=== PATIENT | female | born 2000 | race Caucasian/White ===

== ENCOUNTER 2024-12-06 17:22 | Inpatient (IN) | payer OTHER ==
[~2024-12-06] VITALS: Ht 167.6 cm; Wt 120.9 kg
[2024-12-06] MEDS: SODIUM CHLORIDE 0.9% 1,000 ML IVB ONE (17:30)
--- NOTE | 2024-12-06 17:45 | ED.PDOC ---
General HPI Comments This is a 24-year-old female who comes in with chief complaint of right-sided flank pain. The patient states that the symptoms started approximately 1 hour ago. The patient states that she has never had these symptoms in the past. She went to the restroom and noticed a significant amount of hematuria. The patient then started vomiting and so she called 911. When the paramedics arrived, the patient was given Zofran 4 mg ODT. The patient states that the pain was an 8/10. There was no fever or chills. Upon arrival, the patient is still having some retching. Chief Complaint: Flank Pain Time Seen by MD: 17:25 Reviewed notes: Nurses Notes, In Flight Technician Notes, Medications, Allergies (No allergies to medications) Allergies: Coded Allergies: NO KNOWN ALLERGIES (Unverified , 12/06/24) Information Source: Patient, Emergency Med Personnel Mode of Arrival: EMS Severity: Moderate Inability to void: None Timing: Hours Duration: Since onset Prehospital treatment: None Onset: Spontaneous Symptoms: Hematuria History of: None Location: (R) Flank Modifying factors: None associated signs and symptoms: Abdominal Pain, Nausea, Vomiting, Flank Pain (Right-sided flank pain), Hematuria Past Medical History PAST MEDICAL HISTORY: Denies Surgical History: Tonsillectomy 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: No Pertinent 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 Family History Family History: Family hx of DM, Family hx of HTN Social History Smoker: Cigarettes Alcohol: Occasionally Drugs: Denies Drug Use Lives In: Home Constitutional: denies: chills, diaphoresis, fatigue, fever, malaise, sweats, weakness, others EENTM: denies: blurred vision, double vision, ear bleeding, ear discharge, ear drainage, ear pain, ear ringing, eye pain, eye redness, hearing loss, mouth pain, mouth swelling, nasal discharge, nose bleeding, nose congestion, nose pain, photophobia, tearing, throat pain, throat swelling, voice changes, others Respiratory: denies: cough, hemoptysis, orthopnea, SOB at rest, shortness of breath, SOB with excertion, stridor, wheezing, others Cardiovascular: denies: chest pain, dizzy spells, diaphoresis, Dyspnea on exertion, edema, irregular heart beat, left arm pain, lightheadedness, palpitations, PND, syncope, others Gastrointestinal: reports: abdominal pain, nausea, vomiting; denies: abdomen distended, blood streaked bowels, constipated, diarrhea, dysphagia, difficulty swallowing, hematemesis, melena, poor appetite, poor fluid intake, rectal bleeding, rectal pain, others Genitourinary: reports: flank pain (Right-sided flank pain), hematuria; denies: abnormal vagina bleeding, burning, dyspareunia, dysuria, frequency, i ncontinence, pain, , vagina discharge, urgency, others Neurological: denies: dizziness, fainting, headache, left sided numbness, left sided weakness, numbness, paresthesia, pre-existing deficit, right sided numbness, right sided weakness, seizure, speech problems, tingling, tremors, weakness, others Musculoskeletal: denies: back pain, gout, joint pain, joint swelling, muscle pain, muscle stiffness, neck pain, others Integumetry: denies: bruises, change in color, change in hair/nails, dryness, laceration, lesions, lumps, rash, wounds, others Hematologic/Lymphatic: denies: anemia, blood clots, easy bleeding, easy bruising, swollen glands, others Endocrine: denies: excessive hunger, excessive sweating, excessive thirst, excessive urination, flushing, intolerance to cold, intolerance to heat, unexplained weight gain, unexplained weight loss, others Psychiatric: denies: anxiety, bipolar disorder, depression, hopeless, panic disorder, schizophrenia, sleepless, suicidal, others Physical Exam General Appearance: Moderate Distress, Obese HEENT: Normal ENT Inspection, Pharynx Normal, TMs Normal Neck: Full Range of Motion, Non-Tender, Normal, Normal Inspection Respiratory: Chest Non-Tender, Lungs Clear, No Accessory Muscle Use, No Respiratory Distress, Normal Breath Sounds Cardiovascular: No Edema, No JVD, No Murmur, No Gallop, Normal Peripheral Pulses, Regular Rate/Rhythm Breast Exam: Deferred Gastrointestinal: No Organomegaly, Non Tender, No Pulsatile Mass, Normal Bowel Sounds, Soft Genitalia: Deferred Pelvic: Deferred Rectal: Deferred Extremities: No calf tenderness, Normal capillary refill, No pedal edema Musculoskeletal : Location: Right Extremity Location: Back Apperance: Tenderness: Moderate Neurologic: Alert, rubber chemist II-XII nml as Tested, No Motor Deficits, Normal Affect, Normal Mood, No Sensory Deficits Cerebellar Function: Normal Reflexes: Normal Skin: Dry, Normal Color, Warm Lymphatic: No Adenopathy Was a procedure done? Was a procedure done?: No Differential Diagnosis Kidney stone (Female): Musculoskeletal pain, Pancreatitis, Pyelonephritis, Renal failure, Strain, Urolithiasis X-Ray, Labs, Meds, VS Vital Signs Date Time Temp Pulse Resp B/P (MAP) Pulse Ox O2 Delivery O2 Flow Rate FiO2 12/06/24 19:08 98.7 91 16 113/76 (88) 99 98.7 12/06/24 19:08 91 16 99 Room Air 12/06/24 17:30 98.6 86 16 133/79 (97) 98 98.6 Lab Test 12/06/24 18:07 12/06/24 17:46 Range/Units Urine Color Light-brown Yellow Urine Clarity Ex.turbid Clear Urine pH 5.5 5.0-9.0 Urine Specific [place] 1.029 1.001-1.035 Urine Protein 1+ H Negative Urine Ketones Trace Negative Urine Blood 3+ H Negative /uL Urine Nitrite Negative Negative Urine Bilirubin Negative Negative Urine Urobilinogen Normal Negative mg/dL Urine Leukocyte Esterase Trace Negative /uL Urine RBC 4736 0 - 4 /hpf Urine Microscopic WBC 41 H 0-5 /HPF Urine Squamous Epithelial Cells Mod <5 /hpf Urine Bacteria None seen None Seen /hpf Urine Mucus Few None Seen Urine Yeast (Budding) Few None Seen /hpf Urine Glucose Normal Normal mg/dL Urine Test Negative Negative White Blood Count 10.4 4.4-10.8 10^3/uL Red Blood Count 4.88 4.0-5.20 10^6/uL Hemoglobin 13.8 12.2-16.2 g/dL Hematocrit 41.2 36.0-46.0 % Mean Corpuscular Volume 84.4 80.0-100.0 fL Mean Corpuscular Hemoglobin 28.4 28.0-32.0 pg Mean Corpuscular Hemoglobin Concent 33.6 32.0-36.0 g/dL Red Cell Distribution Width 13.8 11.8-14.3 % Platelet Count 295 140-450 10^3/uL Mean Platelet Volume 8.9 6.9-10.8 fL Neutrophils (%) (Auto) 75.5 37.0-80.0 % Lymphocytes (%) (Auto) 17.2 10.0-50.0 % Monocytes (%) (Auto) 5.8 0.0-12.0 % Eosinophils (%) (Auto) 0.7 0.0-7.0 % Basophils (%) (Auto) 0.8 0.0-2.0 % Neutrophils # (Auto) 7.8 1.6-8.6 10 ^3/uL Lymphocytes # (Auto) 1.8 0.4-5.4 10 ^3/uL Monocytes # (Auto) 0.6 0-1.3 10 ^3/uL Eosinophils # (Auto) 0.1 0-0.8 10 ^3/uL Basophils # (Auto) 0.1 0-0.2 10 ^3/uL Nucleated Red Blood Cells 0.1 % Sodium Level 143 136-145 mmol/L Potassium Level 3.9 3.5-5.1 mmol/L Chloride Level 107 98-107 mmol/L Carbon Dioxide Level 26 20-31 mmol/L Anion Gap 10 5-15 Blood Urea Nitrogen 10 9-23 mg/dL Creatinine 0.86 0.550-1.02 mg/dL Glomerular Filtration Rate Calc 96 >90 mL/min BUN/Creatinine Ratio 11.6 10.0-20.0 Serum Glucose 100 74-106 mg/dL Calcium Level 10.1 8.7-10.4 mg/dL IV Hep-Lock was established. The patient was given a 1 L bolus of normal saline The patient was given Toradol 30 mg IV push The patient is being given morphine 4 mg IV push for the pain and Zofran 4 mg IV push for the nausea and Cat scan of the abdomen and pelvis shows: IMPRESSION: 1. Obstructing 3 x 4 mm calculus at the right UPJ. Additional punctate 2 mm calculus at the right UVJ. There is mild right hydronephrosis. 2. Punctate nonobstructing left renal calculus. At this time, the patient is being admitted to the hospitalist Images Reviewed?: Images reviewed and evaluated by me Time of 1ST Reevaluation: 17:45 Reevaluation 1ST: Unchanged Patient Education/Counseling: Diagnosis, Treatment, Prognosis Family Education/Counseling: No Family Present Departure 1 Departure Time of Disposition: 19:29 Impression: Primary Impression: Intractable abdominal pain Additional Impression: Ureterolithiasis Disposition: 09 ADMITTED INPATIENT Admit to: Med Surg Condition: Fair Critical Care Note Critical Care Time?: No Stability Stability form required: Yes Unstable for transfer: ED Physician Assesment (Clinical assesment) Heart Score Heart Score: Heart Score Response (Comments) Value History N/A 0 EKG N/A 0 Age N/A 0 Risk Factors N/A 0 Troponin N/A 0 Total 0 SHIRA CADE MD Dec 06, 2024 17:45
[2024-12-06 17:59] LABS: Basophils # (auto) 0.1 10 ^3/uL (0-0.2); Basophils % (auto) 0.8 % (0.0-2.0); Eosinophils # (auto) 0.1 10 ^3/uL (0-0.8); Eosinophils % (auto) 0.7 % (0.0-7.0); Hematocrit 41.2 % (36.0-46.0); Hemoglobin 13.8 g/dL (12.2-16.2); Lymphocytes # (auto) 1.8 10 ^3/uL (0.4-5.4); Lymphocytes % (auto) 17.2 % (10.0-50.0); Mean Corpuscular Hemoglobin 28.4 pg (28.0-32.0); Mean Corpuscular Hgb Conc. 33.6 g/dL (32.0-36.0); Mean Corpuscular Volume 84.4 fL (80.0-100.0); Monocytes # (auto) 0.6 10 ^3/uL (0-1.3); Monocytes % (auto) 5.8 % (0.0-12.0); Neutrophils # (auto) 7.8 10 ^3/uL (1.6-8.6); Neutrophils % (auto) 75.5 % (37.0-80.0); Nucleated Red Blood Cells % 0.1 %; Platelet Count (auto) 295 10^3/uL (140-450); Red Blood Cells 4.88 10^6/uL (4.0-5.20); Red Cell Distribution Width 13.8 % (11.8-14.3); White Blood Cell 10.4 10^3/uL (4.4-10.8)
[2024-12-06 18:08] LABS: Potassium 3.9 mmol/L (3.5-5.1); Sodium 143 mmol/L (136-145)
[2024-12-06 18:09] LABS: Urine Bacteria None Seen /hpf (None Seen)
[2024-12-06 18:09] LABS: Calcium 10.1 mg/dL (8.7-10.4); Chloride 107 mmol/L (98-107)
[2024-12-06 18:14] LABS: BUN/Creatinine Ratio 11.6 (10.0-20.0); Blood Urea Nitrogen 10 mg/dL (9-23); Glucose 100 mg/dL (74-106)
[2024-12-06 18:19] LABS: Urine Blood 3+ /uL (Negative); Urine Budding Yeast FEW /hpf (None Seen); Urine Clarity Ex.Turbid (Clear); Urine Color Light-Brown (Yellow); Urine Mucus FEW (None Seen); Urine Protein, UAD 1+ (Negative); Urine Specific Gravity 1.029 (1.001-1.035); Urine Squamous Epithelial Cell MOD /hpf (<5); Urine Urobilinogen Normal (Negative); Urine WBC 41 /HPF (0-5); Urine pH 5.5 (5.0-9.0)
[2024-12-06 18:39] LABS: Anion Gap 10 (5-15); Carbon Dioxide 26 mmol/L (20-31)
--- NOTE | 2024-12-06 18:54 | DVH ---
Exam: CT CT AB PEL WO CON-NO ORAL OR IV History: Right flank pain Comparison Study: None Technique: Multidetector spiral CT of the abdomen was performed from lung bases to pubic symphysis. Imaging was performed without IV contrast. Axial, coronal and sagittal multiplanar reformats were ob tained from the axial data set by the technologist. Radiation Dose : 1. Abdomen/Pelvis: CTDIvol 26.6 mGy, DLP 1620 mGy*cm. Findings: Evaluation of solid organs is limited due to lack of intravenous contrast use. Lung Bases: No acute or significant lung base finding. Normal heart size. No pleural or pericardial effusion. Liver: The liver is normal in size. No focal lesions. Gallbladder and Biliary Tree: Unremarkable Spleen: Unremarkable Pancreas: The pancreas is grossly normal in appearance. Adrenal Glands: Unremarkable Kidneys: Obstructing 3 x 3 x 4 mm calculus at the right ureteropelvic junction. Additional punctate 2 mm calculus at the right ureterovesical junction (series 2, image 89). Mild right hydronephrosis. Th e right ureter is not dilated. Punctate nonobstructing left superior renal pole calculus. Bladder: Urinary bladder is nondistended. Bowel: The stomach is grossly normal in appearance. Small bowel and colon are normal in caliber and d istribution. Normal appendix is visualized in the right lower quadrant without findings of appendici tis. Ascites: Absent Lymphadenopathy: No mesenteric, retroperitoneal or periportal lymphadenopathy. Abdominal Wall and Mesentery: Unremarkable. Vasculature: The visualized abdominal aorta is normal in size and caliber. Evaluation of abdominal a nd pelvic vessels is limited due to lack of intravenous contrast. Pelvic Organs: Unremarkable Musculoskeletal: No aggressive focal bony lesions, acute fractures or dislocation. IMPRESSION: 1. Obstructing 3 x 4 mm calculus at the right UPJ. Additional punctate 2 mm calculus at the right UV J. There is mild right hydronephrosis. 2. Punctate nonobstructing left renal calculus. Radiation optimization: All CT scans at this facility use at least one of these dose optimization romi hniques: automated exposure control mA and/or kV adjustment per patient size (includes targeted exam s where dose is matched to clinical indication) or iterative reconstruction.
[2024-12-06] MEDS ORDERED: ONDANSETRON HCL 4 MG/2 ML VIAL IV PRN (19:30)
[2024-12-06] MEDS ORDERED: HYDROcodone-ACET 5/325MG TAB PO PRN (19:30)
[2024-12-06] MEDS ORDERED: ACETAMINOPHEN 325 MG TAB PO PRN (19:30)
[2024-12-06] MEDS ORDERED: KETOROLAC TROMETH 30 MG/ML 1ML VIAL IV PRN (19:30)
[2024-12-06] MEDS: ONDANSETRON HCL 4 MG/2 ML VIAL IV ONE (19:47)
[2024-12-06] MEDS: KETOROLAC TROMETH 30 MG/ML 1ML VIAL IV ONE (19:47)
[2024-12-06] MEDS: cefTRIAXone 1GM/50ML D5W 50 ML IV ONE (19:47)
[2024-12-06] MEDS: MORPHINE SULFATE 4 MG/ML SYR/VIAL IV ONE (19:51)
[2024-12-06 21:41] VITALS: BP 118/83; PULSE 67; RESP 19; TEMP 98.9; O2SAT 96
[2024-12-06 21:46] VITALS: RESP 18
--- NOTE | 2024-12-06 22:18 | DVHHP2 ---
History of Present Illness Reason for Visit: Right flank pain History of Present Illness 24-year-old female presents for evaluation of right flank pain. Patient endorses a one day history of right-sided flank pain with associated hematuria. Reports occasional nausea. Fever or chills. No other acute complaints. Past Medical History Denies Past Surgical History Tonsillectomy Family History Noncontributory Smoke: <1 pack per day ALCOHOL: occassional Drugs: None Lives: with Family Review of Systems Review of Systems Review of systems are currently negative otherwise addressed in HPI. Allergies: Coded Allergies: NO KNOWN ALLERGIES (Unverified , 12/06/24) Medications Current Medications Medications Dose Ordered Sig/Venus Route Start Time Stop Time Status Last Admin Dose Admin Ceftriaxone Sodium 50 ml @ 100 mls/hr DAILY@09 IV 12/07/24 09:00 Ketorolac Tromethamine 15 mg Q6HPRN PRN IV 12/06/24 19:30 12/11/24 19:29 Acetaminophen/ Hydrocodone Bitart 1 tab Q4HP PRN PO 12/06/24 19:30 Ondansetron HCl 4 mg Q4HP PRN IV 12/06/24 19:30 Acetaminophen 650 mg Q6HP PRN PO 12/06/24 19:30 Exam Vital Signs Vital Signs Date Time Temp Pulse Resp B/P (MAP) Pulse Ox O2 Delivery O2 Flow Rate FiO2 12/06/24 21:41 98.9 67 19 118/83 (95) 96 98.9 12/06/24 19:08 Room Air Exam Gen: 24-year-old female in mild distress, morbidly obese Skin: Warm, dry, normal color and texture, no rash. HEENT: Normocephalic atraumatic, mucous membranes moist and pink. Neck: Cervical and supraclavicular nodes normal without enlargement, trachea is midline, thyroid gland is normal without masses. Pulmonary: Clear to auscultation and percussion bilaterally. Cardiac: Regular rate and rhythm. No murmur Abdomen: Soft, right CVA tenderness, nondistended, bowel sounds present all 4 quadrants, no guarding, no rigidity, no organomegaly. Extremities: No cyanosis, clubbing, no edema Neuro: Cranial nerves II through XII grossly intact, normal affect and speech, no focal motor deficits. Labs/Xrays ORDERING PHYSICIAN: SHIRA CADE MD PROCEDURE(s): ABPL - CT AB PEL WO CON-NO ORAL OR IV REASON: Right flank pain ORDER NUMBER(s): [id number], ACCESSION NUMBER(s): [id number] Exam: CT CT AB PEL WO CON-NO ORAL OR IV History: Right flank pain Comparison Study: None Technique: Multidetector spiral CT of the abdomen was performed from lung bases to pubic symphysis. Imaging was performed without IV contrast. Axial, coronal and sagittal multiplanar reformats were obtained from the axial data set by the technologist. Radiation Dose : 1. Abdomen/Pelvis: CTDIvol 26.6 mGy, DLP 1620 mGy*cm. Findings: Evaluation of solid organs is limited due to lack of intravenous contrast use. Lung Bases: No acute or significant lung base finding. Normal heart size. No pl eural or pericardial effusion. Liver: The liver is normal in size. No focal lesions. Gallbladder and Biliary Tree: Unremarkable Spleen: Unremarkable Pancreas: The pancreas is grossly normal in appearance. Adrenal Glands: Unremarkable Kidneys: Obstructing 3 x 3 x 4 mm calculus at the right ureteropelvic junction. Additional punctate 2 mm calculus at the right ureterovesical junction (series 2, image 89). Mild right hydronephrosis. The right ureter is not dilated. Punctate nonobstructing left superior renal pole calculus. Bladder: Urinary bladder is nondistended. Bowel: The stomach is grossly normal in appearance. Small bowel and colon are normal in caliber and distribution. Normal appendix is visualized in the right lower quadrant without findings of appendicitis. Ascites: Absent Lymphadenopathy: No mesenteric, retroperitoneal or periportal lymphadenopathy. Abdominal Wall and Mesentery: Unremarkable. Vasculature: The visualized abdominal aorta is normal in size and caliber. Evaluation of abdominal and pelvic vessels is limited due to lack of intravenous contrast. Pelvic Organs: Unremarkable Musculoskeletal: No aggressive focal bony lesions, acute fractures or dislocation. IMPRESSION: 1. Obstructing 3 x 4 mm calculus at the right UPJ. Additional punctate 2 mm calculus at the right UVJ. There is mild right hydronephrosis. 2. Punctate nonobstructing left renal calculus. Radiation optimization: All CT scans at this facility use at least one of these dose optimization techniques: automated exposure control mA and/or kV adjustment per patient size (includes targeted exams where dose is matched to clinical indication) or iterative reconstruction. Labs Test 12/06/24 18:07 12/06/24 17:46 Range/Units Urine Color Light-brown Yellow Urine Clarity Ex.turbid Clear Urine pH 5.5 5.0-9.0 Urine Specific [place] 1.029 1.001-1.035 Urine Protein 1+ H Negative Urine Ketones Trace Negative Urine Blood 3+ H Negative /uL Urine Nitrite Negative Negative Urine Bilirubin Negative Negative Urine Urobilinogen Normal Negative mg/dL Urine Leukocyte Esterase Trace Negative /uL Urine RBC 4736 0 - 4 /hpf Urine Microscopic WBC 41 H 0-5 /HPF Urine Squamous Epithelial Cells Mod <5 /hpf Urine Bacteria None seen None Seen /hpf Urine Mucus Few None Seen Urine Yeast (Budding) Few None Seen /hpf Urine Glucose Normal Normal mg/dL Urine Test Negative Negative White Blood Count 10.4 4.4-10.8 10^3/uL Red Blood Count 4.88 4.0-5.20 10^6/uL Hemoglobin 13.8 12.2-16.2 g/dL Hematocrit 41.2 36.0-46.0 % Mean Corpuscular Volume 84.4 80.0-100.0 fL Mean Corpuscular Hemoglobin 28.4 28.0-32.0 pg Mean Corpuscular Hemoglobin Concent 33.6 32.0-36.0 g/dL Red Cell Distribution Width 13.8 11.8-14.3 % Platelet Count 295 140-450 10^3/uL Mean Platelet Volume 8.9 6.9-10.8 fL Neutrophils (%) (Auto) 75.5 37.0-80.0 % Lymphocytes (%) (Auto) 17.2 10.0-50.0 % Monocytes (%) (Auto) 5.8 0.0-12.0 % Eosinophils (%) (Auto) 0.7 0.0-7.0 % Basophils (%) (Auto) 0.8 0.0-2.0 % Neutrophils # (Auto) 7.8 1.6-8.6 10 ^3/uL Lymphocytes # (Auto) 1.8 0.4-5.4 10 ^3/uL Monocytes # (Auto) 0.6 0-1.3 10 ^3/uL Eosinophils # (Auto) 0.1 0-0.8 10 ^3/uL Basophils # (Auto) 0.1 0-0.2 10 ^3/uL Nucleated Red Blood Cells 0.1 % Sodium Level 143 136-145 mmol/L Potassium Level 3.9 3.5-5.1 mmol/L Chloride Level 107 98-107 mmol/L Carbon Dioxide Level 26 20-31 mmol/L Anion Gap 10 5-15 Blood Urea Nitrogen 10 9-23 mg/dL Creatinine 0.86 0.550-1.02 mg/dL Glomerular Filtration Rate Calc 96 >90 mL/min BUN/Creatinine Ratio 11.6 10.0-20.0 Serum Glucose 100 74-106 mg/dL Calcium Level 10.1 8.7-10.4 mg/dL Assessment/Plan Assessment/Plan Assessment Renal calculus Hematuria Right hydronephrosis Morbid obesity Plan Admit the patient to [facility] to the hospitalist Urology consult Pain management Rocephin Continue treatment per orders Plan discussed with: Patient My Orders Orders - MIR CAPUTO Procedure Category Date Status Time Ceftriaxone 1gm/50ml PHA 12/07/24 In Process D5w (Rocephin) 09:00 * Urology Consult CONS 12/06/24 Transmitted 19:24 Ketorolac Injection PHA 12/06/24 In Process (Toradol Injection) 19:30 Admit ADMIT 12/06/24 Transmitted 19:24 Hydrocodone-Acet PHA 12/06/24 In Process 5/325mg Tab ([place] 19:30 Ondansetron Hcl PHA 12/06/24 In Process (Zofran) 19:30 Condition: Stable ISAC 12/06/24 In Process 19:24 Acetaminophen Tablet PHA 12/06/24 In Process (Tylenol Tablet) 19:30 Bedrest With Bathroom ISAC 12/06/24 In Process Privileg 19:24 Date of Service: Dec 06, 2024 Billing Provider: MIR CAPUTO Common Visit Codes: [id number] INP/OBS CARE (MOD) MIR CAPUTO Dec 06, 2024 22:18
[2024-12-07] VITALS (8 sets, daily range): BP systolic 99–122; BP diastolic 59–78; PULSE 58–97; RESP 18–20; TEMP 96.9–98.5; O2SAT 96–99
[2024-12-07] MEDS ORDERED: ONDANSETRON HCL 4 MG/2 ML VIAL IV PRN (00:15)
[2024-12-07] MEDS: ONDANSETRON HCL 4 MG/2 ML VIAL IV PRN (00:29)
[2024-12-07] MEDS: KETOROLAC TROMETH 30 MG/ML 1ML VIAL IV PRN (00:29)
[2024-12-07] MEDS ORDERED: TAMSULOSIN HYDROCHLORIDE 0.4 MG CAP PO SCH (08:30)
[2024-12-07] MEDS: TAMSULOSIN HYDROCHLORIDE 0.4 MG CAP PO ONE ×2 (09:47→18:35)
[2024-12-07 10:18] LABS: Basophils # (auto) 0.1 10 ^3/uL (0-0.2); Basophils % (auto) 0.9 % (0.0-2.0); Eosinophils # (auto) 0.1 10 ^3/uL (0-0.8); Eosinophils % (auto) 0.8 % (0.0-7.0); Hematocrit 41.1 % (36.0-46.0); Hemoglobin 13.8 g/dL (12.2-16.2); Lymphocytes # (auto) 1.8 10 ^3/uL (0.4-5.4); Lymphocytes % (auto) 17.6 % (10.0-50.0); Mean Corpuscular Hemoglobin 28.4 pg (28.0-32.0); Mean Corpuscular Hgb Conc. 33.5 g/dL (32.0-36.0); Mean Corpuscular Volume 84.8 fL (80.0-100.0); Monocytes # (auto) 0.9 10 ^3/uL (0-1.3); Monocytes % (auto) 9.1 % (0.0-12.0); Neutrophils # (auto) 7.2 10 ^3/uL (1.6-8.6); Neutrophils % (auto) 71.6 % (37.0-80.0); Nucleated Red Blood Cells % 0.1 %; Platelet Count (auto) 276 10^3/uL (140-450); Red Blood Cells 4.84 10^6/uL (4.0-5.20); Red Cell Distribution Width 13.7 % (11.8-14.3)
[2024-12-07 10:28] LABS: Potassium 3.8 mmol/L (3.5-5.1); Sodium 144 mmol/L (136-145)
[2024-12-07 10:29] LABS: Anion Gap 9 (5-15); Calcium 9.5 mg/dL (8.7-10.4); Carbon Dioxide 27 mmol/L (20-31)
[2024-12-07 10:30] LABS: Chloride 108 mmol/L (98-107)
[2024-12-07 10:35] LABS: BUN/Creatinine Ratio 10.6 (10.0-20.0); Blood Urea Nitrogen 9 mg/dL (9-23); Glucose 92 mg/dL (74-106)
[2024-12-07] MEDS: cefTRIAXone 1GM/50ML D5W 50 ML IV SCH (10:36)
[2024-12-07] MEDS: SODIUM CHLORIDE 0.9% 1,000 ML IV ONE (12:11)
--- NOTE | 2024-12-07 15:06 | DVHPNRES ---
Progress Note Date Seen: Dec 07, 2024 Resident Creating Document: FABRICIO ARDON RESIDENT Has the PT tested + for MRSA If YES, has PT been informed?: No Medical Necessity Reason Pt with a Central, PICC or Fol: No Subjective Review of Systems 24-year-old female presents for evaluation of right flank pain. Patient endorses a one day history of right-sided flank pain with associated hematuria. Reports occasional nausea. Fever or chills. No other acute complaints. Past Surgical History Tonsillectomy Smoke: <1 pack per day ALCOHOL: occassional Drugs: None Lives: with Family Ct scan showed: Obstructing 3 x 4 mm calculus at the right UPJ. Additional punctate 2 mm calculus at the right UVJ. There is mild right hydronephrosis. IV fluids given, tamsulosin ordered, pain management, strain urine, we will monitor symptoms Objective vital signs Vital Sign Date Time Temp Pulse Resp B/P (MAP) Pulse Ox O2 Delivery O2 Flow Rate FiO2 12/07/24 13:00 98.1 70 18 107/59 (75) 98 98.1 12/07/24 08:00 Room Air* 0 21 Total Intake and Output 12/06/24 12/06/24 12/07/24 15:00 23:00 07:00 Intake Total 450 ml Balance 450 ml medications Current Medications Medications Dose Ordered Sig/Venus Route Start Time Stop Time Status Last Admin Dose Admin Ceftriaxone Sodium 50 ml @ 100 mls/hr DAILY@09 IV 12/07/24 09:00 12/07/24 10:36 100 MLS/HR Acetaminophen/ Hydrocodone Bitart 1 tab Q4HP PRN PO 12/06/24 19:30 Acetaminophen 650 mg Q6HP PRN PO 12/06/24 19:30 Ketorolac Tromethamine 15 mg Q6HPRN PRN IV 12/07/24 00:15 12/11/24 19:29 12/07/24 09:47 15 MG Ondansetron HCl 4 mg Q4HP PRN IV 12/07/24 00:15 12/07/24 09:58 4 MG Tamsulosin HCl 0.4 mg QPM PO 12/08/24 18:00 Examination Gen: 24-year-old female in mild distress, morbidly obese Skin: Warm, dry, normal color and texture, no rash. HEENT: Normocephalic atraumatic, mucous membranes moist and pink. Neck: Cervical and supraclavicular nodes normal without enlargement, trachea is midline, thyroid gland is normal without masses. Pulmonary: Clear to auscultation and percussion bilaterally. Cardiac: Regular rate and rhythm. No murmur Abdomen: Soft, right CVA tenderness, nondistended, bowel sounds present all 4 quadrants, no guarding, no rigidity, no organomegaly. Extremities: No cyanosis, clubbing, no edema Neuro: Cranial nerves II through XII grossly intact, normal affect and speech, no focal motor deficits. laboratory and microbiology Laboratory Tests 12/07/24 09:47 Test 12/07/24 09:47 Range/Units Serum Glucose 92 74-106 mg/dL Problem List/Assessment/Plan Problem List/Assessment/Plan #Renal calculus #Obstructing 3 x 4 mm calculus at the right UPJ. Additional punctate 2 mm calculus at the right UVJ #Hematuria #Right hydronephrosis #Morbid obesity Plan Regular diet IV given Ketorolac and norco for pain Ceftriaxone IV Case discussed with Dr Azul Plan discussed with: Patient, Other (rn) My Orders My Orders Orders - FABRICIO ARDON Procedure Category Date Status Time Strain All Urine For ISAC 12/07/24 In Process Stones 08:22 Tamsulosin PHA 12/08/24 In Process Hydrochloride (Flomax) 18:00 Date of Service: Dec 07, 2024 Billing Provider: STEPH AZUL MD Common Visit Codes: [id number] INP/OBS CARE(HIGH) FABRICIO ARDON Dec 07, 2024 15:06 STEPH AZUL MD Dec 08, 2024 21:31
[2024-12-07] MEDS: TAMSULOSIN HYDROCHLORIDE 0.4 MG CAP PO SCH (18:24)
[2024-12-08] VITALS (8 sets, daily range): BP systolic 108–127; BP diastolic 48–85; PULSE 67–86; RESP 17–20; TEMP 95.2–98.4; O2SAT 95–99
[2024-12-08 07:22] LABS: Basophils # (auto) 0.1 10 ^3/uL (0-0.2); Basophils % (auto) 1.1 % (0.0-2.0); Eosinophils # (auto) 0.1 10 ^3/uL (0-0.8); Eosinophils % (auto) 1.5 % (0.0-7.0); Hematocrit 40.8 % (36.0-46.0); Hemoglobin 13.7 g/dL (12.2-16.2); Lymphocytes # (auto) 1.3 10 ^3/uL (0.4-5.4); Lymphocytes % (auto) 15.2 % (10.0-50.0); Mean Corpuscular Hemoglobin 28.6 pg (28.0-32.0); Mean Corpuscular Hgb Conc. 33.7 g/dL (32.0-36.0); Monocytes # (auto) 0.7 10 ^3/uL (0-1.3); Monocytes % (auto) 7.9 % (0.0-12.0); Neutrophils # (auto) 6.4 10 ^3/uL (1.6-8.6); Neutrophils % (auto) 74.3 % (37.0-80.0); Nucleated Red Blood Cells % 0.1 %; Platelet Count (auto) 248 10^3/uL (140-450); White Blood Cell 8.7 10^3/uL (4.4-10.8)
[2024-12-08 07:29] LABS: Anion Gap 12 (5-15); Carbon Dioxide 24 mmol/L (20-31); Chloride 104 mmol/L (98-107); Potassium 3.5 mmol/L (3.5-5.1); Sodium 140 mmol/L (136-145)
[2024-12-08 07:31] LABS: Calcium 8.8 mg/dL (8.7-10.4)
[2024-12-08 07:35] LABS: Blood Urea Nitrogen 12 mg/dL (9-23); Glucose 88 mg/dL (74-106)
--- NOTE | 2024-12-08 10:48 | DVHPNRES ---
Progress Note Date Seen: Dec 08, 2024 Resident Creating Document: FABRICIO ARDON RESIDENT Has the PT tested + for MRSA If YES, has PT been informed?: No Medical Necessity Reason Pt with a Central, PICC or Fol: No Subjective Review of Systems 24-year-old female presents for evaluation of right flank pain. Patient endorses a one day history of right-sided flank pain with associated hematuria. Reports occasional nausea. Fever or chills. No other acute complaints. Past Surgical History Tonsillectomy Smoke: <1 pack per day ALCOHOL: occassional Drugs: None Lives: with Family 12/07/2024: Ct scan showed: Obstructing 3 x 4 mm calculus at the right UPJ. Additional punctate 2 mm calculus at the right UVJ. There is mild right hydronephrosis. IV fluids given, tamsulosin ordered, pain management, strain urine, we will monitor symptoms 12/08/2024: pain is migrating to the suprapubic area, we will continue IV fluids, tamsulosin and straining urine Objective vital signs Vital Sign Date Time Temp Pulse Resp B/P (MAP) Pulse Ox O2 Delivery O2 Flow Rate FiO2 12/08/24 09:00 97.9 67 18 115/48 (70) 97 97.9 12/08/24 08:00 Room Air* 0 21 Total Intake and Output 12/07/24 12/07/24 12/08/24 15:00 23:00 07:00 Intake Total 236 ml 300 ml Balance 236 ml 300 ml medications Current Medications Medications Dose Ordered Sig/Venus Route Start Time Stop Time Status Last Admin Dose Admin Ceftriaxone Sodium 50 ml @ 100 mls/hr DAILY@09 IV 12/07/24 09:00 12/08/24 08:10 100 MLS/HR Acetaminophen/ Hydrocodone Bitart 1 tab Q4HP PRN PO 12/06/24 19:30 Acetaminophen 650 mg Q6HP PRN PO 12/06/24 19:30 Ketorolac Tromethamine 15 mg Q6HPRN PRN IV 12/07/24 00:15 12/11/24 19:29 12/07/24 22:26 15 MG Ondansetron HCl 4 mg Q4HP PRN IV 12/07/24 00:15 12/07/24 22:26 4 MG Tamsulosin HCl 0.4 mg QPM PO 12/08/24 10:30 Examination Gen: 24-year-old female in mild distress, morbidly obese Skin: Warm, dry, normal color and texture, no rash. HEENT: Normocephalic atraumatic, mucous membranes moist and pink. Neck: Cervical and supraclavicular nodes normal without enlargement, trachea is midline, thyroid gland is normal without masses. Pulmonary: Clear to auscultation and percussion bilaterally. Cardiac: Regular rate and rhythm. No murmur Abdomen: Soft, right CVA tenderness, nondistended, bowel sounds present all 4 quadrants, no guarding, no rigidity, no organomegaly. Extremities: No cyanosis, clubbing, no edema Neuro: Cranial nerves II through XII grossly intact, normal affect and speech, no focal motor deficits. laboratory and microbiology Laboratory Tests 12/08/24 04:37 Test 12/08/24 04:37 Range/Units Serum Glucose 88 74-106 mg/dL Problem List/Assessment/Plan Problem List/Assessment/Plan #Renal calculus #Obstructing 3 x 4 mm calculus at the right UPJ. Additional punctate 2 mm calculus at the right UVJ #Hematuria #Right hydronephrosis #Morbid obesity Plan Regular diet IV given Ketorolac and norco for pain Ceftriaxone IV 12/07/2024: Ct scan showed: Obstructing 3 x 4 mm calculus at the right UPJ. Additional punctate 2 mm calculus at the right UVJ. There is mild right hydronephrosis. IV fluids given, tamsulosin ordered, pain management, strain urine, we will monitor symptoms 12/08/2024: pain is migrating to the suprapubic area, we will continue IV fluids, tamsulosin and straining urine Case discussed with Dr Parker Plan discussed with: Patient, Other (rn) My Orders My Orders Orders - FABRICIO ARDON Procedure Category Date Status Time Tamsulosin PHA 12/08/24 In Process Hydrochloride (Flomax) 10:30 Sodium Chloride 0.9% PHA 12/08/24 In Process 10:30 FABRICIO ARDON RESIDENT Dec 08, 2024 10:48
[2024-12-08] MEDS: TAMSULOSIN HYDROCHLORIDE 0.4 MG CAP PO SCH (14:06)
[2024-12-08] MEDS: SODIUM CHLORIDE 0.9% 1,000 ML IV ONE (18:43)
[2024-12-09 01:00] VITALS: BP 111/68; PULSE 78; RESP 19; TEMP 98.2; O2SAT 97
[2024-12-09 05:00] VITALS: BP 104/69; PULSE 70; RESP 19; TEMP 97.7; O2SAT 96
--- NOTE | 2024-12-09 06:56 | DVHINCON2 ---
Date of service: Dec 09, 2024 History of Present Illness HPI 24-year-old female with past history of morbid obesity presented with flank pain and hematuria. She is found to have kidney stone and hydronephrosis Home Meds No Active Prescriptions or Reported Meds Past Medical History Patient Family History: Diabetes mellitus G8 MOTHER G8 FATHER G8 SISTER H&P Exam Vital Signs Vital Signs Date Time Temp Pulse Resp B/P (MAP) Pulse Ox O2 Delivery O2 Flow Rate FiO2 12/09/24 05:00 97.7 70 19 104/69 (81) 96 97.7 12/08/24 20:00 Room Air* 0 21 Labs/Xrays Labs Test 12/08/24 04:37 12/06/24 18:07 Range/Units White Blood Count 8.7 4.4-10.8 10^3/uL Red Blood Count 4.80 4.0-5.20 10^6/uL Hemoglobin 13.7 12.2-16.2 g/dL Hematocrit 40.8 36.0-46.0 % Mean Corpuscular Volume 85.0 80.0-100.0 fL Mean Corpuscular Hemoglobin 28.6 28.0-32.0 pg Mean Corpuscular Hemoglobin Concent 33.7 32.0-36.0 g/dL Red Cell Distribution Width 14.0 11.8-14.3 % Platelet Count 248 140-450 10^3/uL Mean Platelet Volume 10.1 6.9-10.8 fL Neutrophils (%) (Auto) 74.3 37.0-80.0 % Lymphocytes (%) (Auto) 15.2 10.0-50.0 % Monocytes (%) (Auto) 7.9 0.0-12.0 % Eosinophils (%) (Auto) 1.5 0.0-7.0 % Basophils (%) (Auto) 1.1 0.0-2.0 % Neutrophils # (Auto) 6.4 1.6-8.6 10 ^3/uL Lymphocytes # (Auto) 1.3 0.4-5.4 10 ^3/uL Monocytes # (Auto) 0.7 0-1.3 10 ^3/uL Eosinophils # (Auto) 0.1 0-0.8 10 ^3/uL Basophils # (Auto) 0.1 0-0.2 10 ^3/uL Nucleated Red Blood Cells 0.1 % Sodium Level 140 136-145 mmol/L Potassium Level 3.5 3.5-5.1 mmol/L Chloride Level 104 98-107 mmol/L Carbon Dioxide Level 24 20-31 mmol/L Anion Gap 12 5-15 Blood Urea Nitrogen 12 9-23 mg/dL Creatinine 1.09 H 0.550-1.02 mg/dL Glomerular Filtration Rate Calc 72 >90 mL/min BUN/Creatinine Ratio 11.0 10.0-20.0 Serum Glucose 88 74-106 mg/dL Calcium Level 8.8 8.7-10.4 mg/dL Urine Color Light-brown Yellow Urine Clarity Ex.turbid Clear Urine pH 5.5 5.0-9.0 Urine Specific [place] 1.029 1.001-1.035 Urine Protein 1+ H Negative Urine Ketones Trace Negative Urine Blood 3+ H Negative /uL Urine Nitrite Negative Negative Urine Bilirubin Negative Negative Urine Urobilinogen Normal Negative mg/dL Urine Leukocyte Esterase Trace Negative /uL Urine RBC 4736 0 - 4 /hpf Urine Microscopic WBC 41 H 0-5 /HPF Urine Squamous Epithelial Cells Mod <5 /hpf Urine Bacteria None seen None Seen /hpf Urine Mucus Few None Seen Urine Yeast (Budding) Few None Seen /hpf Urine Glucose Normal Normal mg/dL Urine Test Negative Negative Assessment/Plan Plan 24-year-old female with past history of morbid obesity presented with flank pain and hematuria. She is found to have kidney stone and hydronephrosis. Patient herself fast for our consultation No JVD. Mucosa pink and wet. No carotid bruit. Lungs are clear to auscultation. Cardiac: Regular, no thrill/gallop. Abdomen is soft. Extremities do not reveal edema. Past medical history includes morbid obesity and status post tonsillectomy Labs reviewed Abdomen and pelvis CT scan revealed: IMPRESSION: 1. Obstructing 3 x 4 mm ca lculus at the right UPJ. Additional punctate 2 mm calculus at the right UVJ. There is mild right hydronephrosis. 2. Punctate nonobstructing left renal calculus. Assessment: Kidney stone Hematuria Hydronephrosis Suggestion for management: Management of pain as per primary team Antibiotics as per primary team/Urology Consider repeat imaging /CT scan Urology evaluation Patient evaluation and chart review and examination and documentation took more than 50 minutes. More than half of the above was for direct patient care. Plan discussed with: Patient, Other (nurse) LAUREEN DAWKINS MD Dec 09, 2024 06:56
[2024-12-09 08:14] LABS: Basophils # (auto) 0.1 10 ^3/uL (0-0.2); Basophils % (auto) 0.9 % (0.0-2.0); Eosinophils # (auto) 0.2 10 ^3/uL (0-0.8); Eosinophils % (auto) 3.1 % (0.0-7.0); Hematocrit 39.7 % (36.0-46.0); Hemoglobin 13.5 g/dL (12.2-16.2); Lymphocytes # (auto) 1.9 10 ^3/uL (0.4-5.4); Lymphocytes % (auto) 26.5 % (10.0-50.0); Mean Corpuscular Hemoglobin 28.3 pg (28.0-32.0); Mean Corpuscular Hgb Conc. 33.9 g/dL (32.0-36.0); Mean Corpuscular Volume 83.6 fL (80.0-100.0); Monocytes # (auto) 0.6 10 ^3/uL (0-1.3); Neutrophils # (auto) 4.4 10 ^3/uL (1.6-8.6); Neutrophils % (auto) 61.5 % (37.0-80.0); Platelet Count (auto) 280 10^3/uL (140-450); Red Blood Cells 4.75 10^6/uL (4.0-5.20); Red Cell Distribution Width 13.9 % (11.8-14.3); White Blood Cell 7.1 10^3/uL (4.4-10.8)
[2024-12-09 08:26] LABS: Sodium 144 mmol/L (136-145)
[2024-12-09 08:27] LABS: Anion Gap 10 (5-15); Calcium 9.6 mg/dL (8.7-10.4); Carbon Dioxide 27 mmol/L (20-31)
[2024-12-09 08:32] LABS: BUN/Creatinine Ratio 15.6 (10.0-20.0); Blood Urea Nitrogen 12 mg/dL (9-23); Glucose 94 mg/dL (74-106)
[2024-12-09 08:34] LABS: Chloride 107 mmol/L (98-107)
[2024-12-09 08:47] VITALS: BP 112/63; PULSE 83; RESP 18; TEMP 98; O2SAT 98
--- NOTE | 2024-12-09 09:14 | DVHINCON2 ---
Date of service: Dec 09, 2024 Referring Physician Hospitalist Reason for Consultation Urolithiasis History of Present Illness 24-year-old female admitted for right-sided flank pain. There was no fever or chills. Currently, pain is well controlled. Chief Complaint: Flank Pain Reviewed notes: Nurses Notes, Polysomnographic Technologist Notes, Medications, Allergies (No allergies to medications) Allergies: Coded Allergies: NO KNOWN ALLERGIES (Unverified , 12/06/24) Information Source: Patient, Emergency Med Personnel Mode of Arrival: EMS Severity: Moderate Inability to void: None Timing: Hours Duration: Since onset Prehospital treatment: None Onset: Spontaneous Symptoms: Hematuria History of: None Location: (R) Flank Modifying factors: None associated signs and symptoms: Abdominal Pain, Nausea, Vomiting, Flank Pain (Right-sided flank pain), Hematuria Past Medical History Denies Past Surgical History Surgical History: Tonsillectomy MANAGER PARK History: No Pertinent MANAGER PARK History Family History: Diabetes mellitus G8 MOTHER G8 FATHER G8 SISTER Social History smoker Allergies: Coded Allergies: NO KNOWN ALLERGIES (Unverified , 12/06/24) Home Meds No Active Prescriptions or Reported Meds Current Medications Current Medications Medications (Trade) Dose Ordered Sig/Venus Route PRN Reason Start Time Stop Time Status Last Admin Tamsulosin HCl (Flomax) 0.4 mg QPM PO 12/08/24 18:00 12/08/24 10:20 DC 12/07/24 18:24 Tamsulosin HCl (Flomax) 0.4 mg QPM PO 12/08/24 10:30 12/08/24 14:06 Review of Systems Constitutional: denies: chills, diaphoresis, fatigue, fever, malaise, sweats, weakness, others EENTM: denies: blurred vision, double vision, ear bleeding, ear discharge, ear drainage, ear pain, ear ringing, eye pain, eye redness, hearing loss, mouth pain, mouth swelling, nasal discharge, nose bleeding, nose congestion, nose pain, photophobia, tearing, throat pain, throat swelling, voice changes, others Respiratory: denies: cough, hemoptysis, orthopnea, SOB at rest, shortness of breath, SOB with excertion, stridor, wheezing, others Cardiovascular: denies: chest pain, dizzy spells, diaphoresis, Dyspnea on exertion, edema, irregular heart beat, left arm pain, lightheadedness, palpitations, PND, syncope, others Gastrointestinal: reports: abdominal pain, nausea, vomiting; denies: abdomen distended, blood streaked bowels, constipated, diarrhea, dysphagia, difficulty swallowing, hematemesis, melena, poor appetite, poor fluid intake, rectal bleeding, rectal pain, others Genitourinary: reports: flank pain (Right-sided flank pain), hematuria; denies: abnormal vagina bleeding, burning, dyspareunia, dysuria, frequency, incontinence, pain, , vagina discharge, urgency, others Neurological: denies: dizziness, fainting, headache, left sided numbness, left sided weakness, numbness, paresthesia, pre-existing deficit, right sided numbness, right sided weakness, seizure, speech problems, tingling, tremors, weakness, others Musculoskeletal: denies: back pain, gout, joint pain, joint swelling, muscle pain, muscle stiffness, neck pain, others Integumetry: denies: bruises, change in color, change in hair/nails, dryness, laceration, lesions, lumps, rash, wounds, others Hematologic/Lymphatic: denies: anemia, blood clots, easy bleeding, easy bruising, swollen glands, others Endocrine: denies: excessive hunger, excessive sweating, excessive thirst, excessive urination, flushing, intolerance to cold, intolerance to heat, unexplained weight gain, unexplained weight loss, others Psychiatric: denies: anxiety, bipolar disorder, depression, hopeless, panic disorder, schizophrenia, sleepless, suicidal, others Vital Signs Vital Signs Date Time Temp Pulse Resp B/P (MAP) Pulse Ox O2 Delivery O2 Flow Rate FiO2 12/09/24 08:47 98.0 83 18 112/63 (79) 98 98.0 12/09/24 08:10 Room Air* 0 21 Physical Exam General Appearance: Moderate Distress, Obese HEENT: Normal ENT Inspection, Pharynx Normal, TMs Normal Neck: Full Range of Motion, Non-Tender, Normal, Normal Inspection Respiratory: Chest Non-Tender, Lungs Clear, No Accessory Muscle Use, No Respiratory Distress, Normal Breath Sounds Cardiovascular: No Edema, No JVD, No Murmur, No Gallop, Normal Peripheral Pulses, Regular Rate/Rhythm Breast Exam: Deferred Gastrointestinal: No Organomegaly, Non Tender, No Pulsatile Mass, Normal Bowel Sounds, Soft Genitalia: Deferred Pelvic: Deferred Rectal: Deferred Extremities: No calf tenderness, Normal capillary refill, No pedal edema Musculoskeletal : Location: Right Extremity Location: Back Apperance: Tenderness: Moderate Neurologic: Alert, labor service representative II-XII nml as Tested, No Motor Deficits, Normal Affect, Normal Mood, No Sensory Deficits Cerebellar Function: Normal Reflexes: Normal Skin: Dry, Normal Color, Warm Lymphatic: No Adenopathy Labs/Diagnostic Data Labs Test 12/09/24 07:28 12/06/24 18:07 Range/Units White Blood Count 7.1 4.4-10.8 10^3/uL Red Blood Count 4.75 4.0-5.20 10^6/uL Hemoglobin 13.5 12.2-16.2 g/dL Hematocrit 39.7 36.0-46.0 % Mean Corpuscular Volume 83.6 80.0-100.0 fL Mean Corpuscular Hemoglobin 28.3 28.0-32.0 pg Mean Corpuscular Hemoglobin Concent 33.9 32.0-36.0 g/dL Red Cell Distribution Width 13.9 11.8-14.3 % Platelet Count 280 140-450 10^3/uL Mean Platelet Volume 9.1 6.9-10.8 fL Neutrophils (%) (Auto) 61.5 37.0-80.0 % Lymphocytes (%) (Auto) 26.5 10.0-50.0 % Monocytes (%) (Auto) 8.0 0.0-12.0 % Eosinophils (%) (Auto) 3.1 0.0-7.0 % Basophils (%) (Auto) 0.9 0.0-2.0 % Neutrophils # (Auto) 4.4 1.6-8.6 10 ^3/uL Lymphocytes # (Auto) 1.9 0.4-5.4 10 ^3/uL Monocytes # (Auto) 0.6 0-1.3 10 ^3/uL Eosinophils # (Auto) 0.2 0-0.8 10 ^3/uL Basophils # (Auto) 0.1 0-0.2 10 ^3/uL Nucleated Red Blood Cells 0.0 % Sodium Level 144 136-145 mmol/L Potassium Level 4.0 3.5-5.1 mmol/L Chloride Level 107 98-107 mmol/L Carbon Dioxide Level 27 20-31 mmol/L Anion Gap 10 5-15 Blood Urea Nitrogen 12 9-23 mg/dL Creatinine 0.77 0.550-1.02 mg/dL Glomerular Filtration Rate Calc 110 >90 mL/min BUN/Creatinine Ratio 15.6 10.0-20.0 Serum Glucose 94 74-106 mg/dL Calcium Level 9.6 8.7-10.4 mg/dL Urine Color Light-brown Yellow Urine Clarity Ex.turbid Clear Urine pH 5.5 5.0-9.0 Urine Specific [place] 1.029 1.001-1.035 Urine Protein 1+ H Negative Urine Ketones Trace Negative Urine Blood 3+ H Negative /uL Urine Nitrite Negative Negative Urine Bilirubin Negative Negative Urine Urobilinogen Normal Negative mg/dL Urine Leukocyte Esterase Trace Negative /uL Urine RBC 4736 0 - 4 /hpf Urine Microscopic WBC 41 H 0-5 /HPF Urine Squamous Epithelial Cells Mod <5 /hpf Urine Bacteria None seen None Seen /hpf Urine Mucus Few None Seen Urine Yeast (Budding) Few None Seen /hpf Urine Glucose Normal Normal mg/dL Urine Test Negative Negative PATIENT: OLGA PATEL ACCT: [id number] UNIT: [id number] : 2000 LOC: ER ROOM / BED: / AGE / SEX: 24 / F ADM STATUS: REG ER SERVICE [id number] ORDERING PHYSICIAN: SHIRA CADE MD PROCEDURE(s): ABPL - CT AB PEL WO CON-NO ORAL OR IV REASON: Right flank pain ORDER NUMBER(s): [id number], ACCESSION NUMBER(s): [id number] Exam: CT CT AB PEL WO CON-NO ORAL OR IV History: Right flank pain Comparison Study: None Technique: Multidetector spiral CT of the abdomen was performed from lung bases to pubic symphysis. Imaging was performed without IV contrast. Axial, coronal and sagittal multiplanar reformats were obtained from the axial data set by the technologist. Radiation Dose : 1. Abdomen/Pelvis: CTDIvol 26.6 mGy, DLP 1620 mGy*cm. Findings: Evaluation of solid organs is limited due to lack of intravenous contrast use. Lung Bases: No acute or significant lung base finding. Normal heart size. No pleural or pericardial effusion. Liver: The liver is normal in size. No focal lesions. Gallbladder and Biliary Tree: Unremarkable Spleen: Unremarkable Pancreas: The pancreas is grossly normal in appearance. Adrenal Glands: Unremarkable Kidneys: Obstructing 3 x 3 x 4 mm calculus at the right ureteropelvic junction. Additional punctate 2 mm calculus at the right ureterovesical junction (series 2, image 89). Mild right hydronephrosis. The right ureter is not dilated. P unctate nonobstructing left superior renal pole calculus. Bladder: Urinary bladder is nondistended. Bowel: The stomach is grossly normal in appearance. Small bowel and colon are normal in caliber and distribution. Normal appendix is visualized in the right lower quadrant without findings of appendicitis. Ascites: Absent Lymphadenopathy: No mesenteric, retroperitoneal or periportal lymphadenopathy. Abdominal Wall and Mesentery: Unremarkable. Vasculature: The visualized abdominal aorta is normal in size and caliber. Evaluation of abdominal and pelvic vessels is limited due to lack of intravenous contrast. Pelvic Organs: Unremarkable Musculoskeletal: No aggressive focal bony lesions, acute fractures or dislocation. IMPRESSION: 1. Obstructing 3 x 4 mm calculus at the right UPJ. Additional punctate 2 mm calculus at the right UVJ. There is mild right hydronephrosis. 2. Punctate nonobstructing left renal calculus. Radiation optimization: All CT scans at this facility use at least one of these dose optimization techniques: automated exposure control mA and/or kV adjustment per patient size (includes targeted exams where dose is matched to clinical indication) or iterative reconstruction. ATED BY: DANISH ARGUETA DO DICTATED DATE/TIME: 12/06/241850 SIGNED BY: DANISH ARGUETA DO SIGNED DATE/TIME: 12/06/241850 CC: Assessment Right flank pain Right proximal ureteral stone, 4 mm Hematuria Plan/Recommendation Expulsive measures Repeat CT scan ordered by Dr. Higuera. Outpatient ESWL TBA if stone does not pass. Plan discussed with: Patient, Other RADAMES AGUDELO MD Dec 09, 2024 09:14
[2024-12-09 09:32] LABS: Urine Bacteria FEW /hpf (None Seen); Urine Blood 3+ /uL (Negative); Urine Clarity Turbid (Clear); Urine Color Colorless (Yellow); Urine Protein, UAD Negative (Negative); Urine Specific Gravity 1.013 (1.001-1.035); Urine Squamous Epithelial Cell FEW /hpf (<5); Urine Urobilinogen Normal (Negative); Urine WBC 6 /HPF (0-5); Urine pH 5.5 (5.0-9.0)
[2024-12-09] MEDS: MANNITOL FTV 25% 12.5 GM/50 ML 50 ML IV ONE (09:50)
--- NOTE | 2024-12-09 10:04 | DVH ---
Exam: CT CT AB PEL WO CON-NO ORAL OR IV History: Renal Calculus Comparison Study: CT CT AB PEL WO CON-NO ORAL OR IV on DOS: 12/06/24 TECHNIQUE: Multidetector CT of the abdomen was performed from lung bases to pubic symphysis. Imaging was performed without IV contrast. Axial, coronal and sagittal multiplanar reformats were obtained fr om the axial data set by the technologist. Radiation dose : 1. Abdomen/Pelvis: CTDIvol 27.1 mGy, DLP 1469.26 mGy*cm. FINDINGS: Evaluation of solid organs is limited due to lack of intravenous contrast use. Findings: Lung Bases: No acute or significant lung base finding. Normal heart size. No pleural or pericardial effusion. Liver: The liver is normal in size. No focal lesions. Gallbladder and biliary Tree: Unremarkable Spleen: Unremarkable Pancreas: The pancreas is grossly normal in appearance. Adrenal Glands: Unremarkable Kidneys: Punctate left renal calculus without hydronephrosis. The 3 mm right renal calculus has migra anderson distally, now within the distal right ureter. No right hydronephrosis. Bladder: Grossly unremarkable for degree of distention. Bowel: The stomach is grossly normal in appearance. Small bowel and colon are normal in caliber and d istribution. The appendix is not visualized; however, no secondary findings of acute appendicitis id entified. Ascites: Absent Lymphadenopathy: No mesenteric, retroperitoneal or periportal lymphadenopathy. Abdominal wall and Mesentery: Unremarkable. Vasculature: The visualized abdominal aorta is normal in size and caliber. Evaluation of abdominal a nd pelvic vessels is limited due to lack of intravenous contrast. Pelvic Organs: Unremarkable Musculoskeletal: No aggressive focal bony lesions, acute fractures or dislocation. Soft tissues: Unremarkable IMPRESSION: 1. The 3mm right renal calculus has migrated distally, now within the distal right ureter. No hydrone phrosis. 2. Punctate left renal calculus without hydronephrosis. 3. Radiation optimization: All CT scans at this facility use at least one of these dose optimization techniques: automated exposure control mA and/or kV adjustment per patient size (includes targeted e xams where dose is matched to clinical indication) or iterative reconstruction.
--- NOTE | 2024-12-09 10:48 | MEDREC ---
[facility] Intervention Section I [facility] Intervention: Review courses of therapy (PLEASE CONSIDER D/C ANTIBIOTIC IN ABSENCE OF BACTERIAL INFECTION) CHIDI HYLTON PHARMACIST Dec 09, 2024 10:48
[2024-12-09 12:31] VITALS: BP 118/74; PULSE 72; RESP 19; TEMP 98.1; O2SAT 97
[2024-12-09] MEDS ORDERED: CIPR500T4 PO (16:01)
[2024-12-09] MEDS ORDERED: NAPR-957 PO (16:01)
[2024-12-09] MEDS ORDERED: TAMS0.4C39 PO (16:01)
--- NOTE | 2024-12-09 16:03 | DVHDSRES ---
Discharge Summary Date of Admission Resident Creating Document: FABRICIO ARDON RESIDENT Dec 06, 2024 at 19:24 Date of Discharge: Dec 09, 2024 Admitting Diagnosis #Obstructing 3 x 4 mm calculus at the right UPJ. Additional punctate 2 mm calculus at the right UVJ Labs/Diagnostic Data: Laboratory Results Test 12/09/24 08:00 12/09/24 07:28 12/06/24 18:07 Urine Color Colorless (Yellow) Urine Clarity Turbid (Clear) Urine pH 5.5 (5.0-9.0) Urine Specific [place] 1.013 (1.001-1.035) Urine Protein Negative (Negative) Urine Ketones Negative (Negative) Urine Blood 3+ /uL (Negative) Urine Nitrite Negative (Negative) Urine Bilirubin Negative (Negative) Urine Urobilinogen Normal mg/dL (Negative) Urine Leukocyte Esterase Negative /uL (Negative) Urine RBC 253 /hpf (0 - 4) Urine Microscopic WBC 6 /HPF (0-5) Urine Squamous Epithelial Cells Few /hpf (<5) Urine Bacteria Few /hpf (None Seen) Urine Glucose Normal mg/dL (Normal) White Blood Count 7.1 10^3/uL (4.4-10.8) Red Blood Count 4.75 10^6/uL (4.0-5.20) Hemoglobin 13.5 g/dL (12.2-16.2) Hematocrit 39.7 % (36.0-46.0) Mean Corpuscular Volume 83.6 fL (80.0-100.0) Mean Corpuscular Hemoglobin 28.3 pg (28.0-32.0) Mean Corpuscular Hemoglobin Concent 33.9 g/dL (32.0-36.0) Red Cell Distribution Width 13.9 % (11.8-14.3) Platelet Count 280 10^3/uL (140-450) Mean Platelet Volume 9.1 fL (6.9-10.8) Neutrophils (%) (Auto) 61.5 % (37.0-80.0) Lymphocytes (%) (Auto) 26.5 % (10.0-50.0) Monocytes (%) (Auto) 8.0 % (0.0-12.0) Eosinophils (%) (Auto) 3.1 % (0.0-7.0) Basophils (%) (Auto) 0.9 % (0.0-2.0) Neutrophils # (Auto) 4.4 10 ^3/uL (1.6-8.6) Lymphocytes # (Auto) 1.9 10 ^3/uL (0.4-5.4) Monocytes # (Auto) 0.6 10 ^3/uL (0-1.3) Eosinophils # (Auto) 0.2 10 ^3/uL (0-0.8) Basophils # (Auto) 0.1 10 ^3/uL (0-0.2) Nucleated Red Blood Cells 0.0 % Sodium Level 144 mmol/L (136-145) Potassium Level 4.0 mmol/L (3.5-5.1) Chloride Level 107 mmol/L (98-107) Carbon Dioxide Level 27 mmol/L (20-31) Anion Gap 10 (5-15) Blood Urea Nitrogen 12 mg/dL (9-23) Creatinine 0.77 mg/dL (0.550-1.02) Glomerular Filtration Rate Calc 110 mL/min (>90) BUN/Creatinine Ratio 15.6 (10.0-20.0) Serum Glucose 94 mg/dL (74-106) Calcium Level 9.6 mg/dL (8.7-10.4) Urine Mucus Few (None Seen) Urine Yeast (Budding) Few /hpf (None Seen) Urine Test Negative (Negative) Other Laboratory Tests 12/09/24 07:28 Brief Hx & Hospital Course: The patient is a 24-year-old female with no significant past medical history who presented with acute right-sided flank pain and gross hematuria. CT imaging revealed a 3 x 4 mm obstructing stone at the right UPJ and a 2 mm non- obstructing stone at the right UVJ, along with mild right hydronephrosis. IV fluids, pain management with Crump and ketorolac, and tamsulosin were initiated. Ceftriaxone was started empirically. Pain migrated toward the suprapubic area during admission. Repeat imaging on 12/09/24 showed that the right-sided stone had migrated distally and was now in the distal right ureter, with resolution of hydronephrosis. No evidence of left-sided obstruction or hydronephrosis. The patient improved clinically and was deemed stable for discharge. No fever or systemic signs of infection were noted during hospitalization. Discharge Medications: Ciprofloxacin 500 mg tab 1 tab PO BID 10 days Naproxen 375 mg tab 1 tab PO BID 7 days Tamsulosin HCl 0.4 mg cap 1 cap PO daily 10 days Follow-up: Urology follow-up with Dr. Bermudez Return to ED if worsening pain, fever, vomiting, or urinary retention Disposition: Home with family Case discussed with Dr Parker Consults/Reason for consult urology due to kidney stones Operations or Procedures History: Renal Calculus Comparison Study: CT CT AB PEL WO CON-NO ORAL OR IV on DOS: 12/06/24 TECHNIQUE: Multidetector CT of the abdomen was performed from lung bases to pubic symphysis. Imaging was performed without IV contrast. Axial, coronal and sagittal multiplanar reformats were obtained from the axial data set by the technologist. Radiation dose : 1. Abdomen/Pelvis: CTDIvol 27.1 mGy, DLP 1469.26 mGy*cm. FINDINGS: Evaluation of solid organs is limited due to lack of intravenous contrast use. Findings: Lung Bases: No acute or significant lung base finding. Normal heart size. No pleural or pericardial effusion. Liver: The liver is normal in size. No focal lesions. Gallbladder and biliary Tree: Unremarkable Spleen: Unremarkable Pancreas: The pancreas is grossly normal in appearance. Adrenal Glands: Unremarkable Kidneys: Punctate left renal calculus without hydronephrosis. The 3 mm right renal calculus has migrated distally, now within the distal right ureter. No right hydronephrosis. Bladder: Grossly unremarkable for degree of distention. Bowel: The stomach is grossly normal in appearance. Small bowel and colon are normal in caliber and distribution. The appendix is not visualized; however, no secondary findings of acute appendicitis identified. Ascites: Absent Lymphadenopathy: No mesenteric, retroperitoneal or periportal lymphadenopathy. Abdominal wall and Mesentery: Unremarkable. Vasculature: The visualized abdominal aorta is normal in size and caliber. Evaluation of abdominal and pelvic vessels is limited due to lack of intravenous contrast. Pelvic Organs: Unremarkable Musculoskeletal: No aggressive focal bony lesions, acute fractures or dislocation. Soft tissues: Unremarkable IMPRESSION: 1. The 3mm right renal calculus has migrated distally, now within the distal right ureter. No hydronephrosis. 2. Punctate left renal calculus without hydronephrosis. Condition at Discharge: Stable Final Diagnosis/Problems List #Renal calculus #Obstructing 3 x 4 mm calculus at the right UPJ. Additional punctate 2 mm calculus at the right UVJ #Hematuria #Right hydronephrosis #Morbid obesity Discharge Disposition: Home Discharge Instruct/Medications Diet: Regular Activity: Light activity Follow Up/Referral: fu with dr bermudez Medications: see prescription Discharge Statement: "Patient was advised to return to the ER or call 911 if any headaches, dizziness, shortness of breath, chest pain, abdominal pain, bleeding, fevers, or worsening of medical condition. Patient was counseled about treatment plan, medications, possible side effects, patientverbalized understanding. All questions were answered to the best of my ability. This discharge took greater then 30 minutes in planning, reviewing documentation, counseling the patient, and discussing with other team members." ASSESSMENT ASSESSMENT Assessment kidney stone FABRICIO ARDON RESIDENT Dec 09, 2024 16:03
[2024-12-09 16:23] VITALS: BP 113/80; PULSE 78; RESP 18; TEMP 36.7
[2024-12-09 16:32] VITALS: BP 113/80; PULSE 78; RESP 18; TEMP 98.2; O2SAT 96
== END 2024-12-09 17:10 | disposition home or self-care (01) | DRG 694 ==
LOC: EDBD 17:22 → ER 17:25 → OVERFLOW 19:24 → ER 19:58 → WEST WING 21:03
PROVIDERS: ADMIT Student in an Organized Health Care Education/Training Program; ATTEND Emergency Medicine
DX: N13.2 Hydronephrosis with renal and ureteral calculous obstruction (principal); Z68.41 Body mass index [BMI] 40.0-44.9, adult; E66.01 Morbid (severe) obesity due to excess calories; E11.9 Type 2 diabetes mellitus without complications; F17.210 Nicotine dependence, cigarettes, uncomplicated; Z83.3 Family history of diabetes mellitus; Z82.49 Family history of ischemic heart disease and other diseases of the circulatory system
CPT/HCPCS: 36415; 74176; 80048; 81001; 81025; 85025; 96365; 96375; G0378; J1885; J2405